=== PATIENT | female | born 1930 | race Caucasian/White ===

== ENCOUNTER → 2016-05-09 | Outpatient (CLI) | payer BC, MEDICARE ==
[2016-05-09 14:28] LABS: CH 30.3; CHCM 33.7; HCT 36.7 % (34.0-46.0); HDW 2.81; HGB 12.1 gm/dL (11.4-16.0); MCH 29.9 pg (25.0-35.0); MCHC 33.1 g/dL (31.0-37.0); MCV 90.3 fL (80.0-100.0); Mean Platelet Volume 7.8; RBC 4.07 m/uL (3.80-5.40); RDW 13.4 % (11.5-15.5)
[2016-05-09 14:42] LABS: ALT 25 U/L (9-52); AST 20 U/L (14-36); Alkaline Phosphatase 94 U/L (38-126); Amylase 85 U/L (30-110); Anion Gap 12 mmol/L; Blood Urea Nitrogen 14 mg/dL (7-17); Calcium 9.8 mg/dL (8.4-10.2); Carbon Dioxide 28 mmol/L (22-30); Chloride 105 mmol/L (98-107); Glucose 99 mg/dL (74-99); Non-African American GFR(MDRD) 59 (>60 ml/min/1.73 sqM); Potassium 4.1 mmol/L (3.5-5.1); Sodium 145 mmol/L (137-145); Total Bilirubin 1.1 mg/dL (0.2-1.3); Total Protein 7.4 g/dL (6.3-8.2)
--- NOTE | 2016-05-09 16:06 | CT ---
EXAMINATION TYPE: CT abdomen pelvis w con DATE OF EXAM: 05/09/2016 3:49 PM COMPARISON: NONE HISTORY: Bilateral lower quadrant pain x [address] DLP: 1121.00 mGycm Automated exposure control for dose reduction was used. CONTRAST: CT scan of the abdomen pelvis is performed with IV Contrast, patient injected with 80 mL of Visipaque 320. FINDINGS- LUNG BASES-cardiomegaly and subsegmental atelectasis at both lung bases. LIVER/GB-numerous hypodensities within the liver too small to characterize but likely related to hepa tic cysts. No gallstones.. PANCREAS- No gross abnormality is seen. SPLEEN- No gross abnormality is seen. ADRENALS- No gross abnormality is seen. KIDNEYS/BLADDER-there are numerous hypodense lesions the majority which appear to represent simple cy sts. Within the lower pole the left kidney is a 1.2 cm lesion which measures 34 Hounsfield units and does not meet the criteria of a simple cyst. Additionally there is a larger cyst within the upper zuly e the right kidney measuring 2.1 cm. This measures 16 Hounsfield units. BOWEL-bowel gas pattern nonspecific.. Normal appendix. LYMPH NODES- No greater than 1cm abdominal or pelvic lymph nodes areappreciated. OSSEOUS STRUCTURES-scoliosis and multilevel degenerative disc disease noted. Endplate deformity of L1 appears chronic may represent previous trauma and/or Schmorl's node. OTHER- ectasia and atherosclerotic changes of the aorta. Trace amount of fluid in the pelvis. IMPRESSION- 1. There are few prominent small bowel loops within the pelvis with a small amount of free fluid. Wit hin the distal ileum there are few loops of bowel which demonstrate very mild bowel wall thickening. This may be related mild area of localized ileus and enteritis. Contrast does extend in the colon wit h no diagnostic evidence of complete obstruction. Correlate clinically. 2. Left lower pole renal lesion is indeterminant does not measure compatible with a simple cyst. Diff erential diagnosis would include a complicated cyst. Solid neoplasm not excluded given its Hounsfield unit measurement and could be correlated with MRI as warranted.
== END ==
LOC: RADCTMAIN 13:12
PROVIDERS: ATTEND Family Medicine
DX: K63.9 Disease of intestine, unspecified (principal); N28.9 Disorder of kidney and ureter, unspecified; R10.31 Right lower quadrant pain; R10.32 Left lower quadrant pain
CPT/HCPCS: 80053; 82150; 83690; 85027; 74177; 36415; Q9967

== ENCOUNTER 2016-09-19 22:59 | Inpatient (IN) | payer MEDICARE ==
[2016-09-19] MEDS ORDERED: hydrALAZINE HCL 20 MG/ML 1 ML VIAL IVP STA (23:58)
[2016-09-20 00:36] LABS: Basophils % (A) 0 %; CH 29.6; CHCM 33.6; Eosinophils # (A) 0.1 k/uL (0-0.7); Eosinophils % (A) 2 %; HCT 32.5 % (34.0-46.0); HDW 2.76; HGB 11.2 gm/dL (11.4-16.0); Luc # (Auto) 0.12; Luc % (Auto) 2; Lymphocytes % (A) 13 %; MCH 30.7 pg (25.0-35.0); MCHC 34.7 g/dL (31.0-37.0); MCV 88.4 fL (80.0-100.0); Mean Platelet Volume 7.4; Monocytes # (A) 0.4 k/uL (0-1.0); Monocytes % (A) 6 %; Neutrophils # (A) 5.9 k/uL (1.3-7.7); Neutrophils % (A) 78 %; RBC 3.67 m/uL (3.80-5.40); RDW 13.9 % (11.5-15.5); WBC 7.5 k/uL (3.8-10.6); WBC (Perox) 7.18
[2016-09-20 00:47] LABS: Appearance,Urine Clear (Clear); Bilirubin,Urine Negative (Negative); Glucose,Urine (UA) Negative (Negative); Ketones,Urine Negative (Negative); Leukocyte Esterase,Urine Trace (Negative); Mucus,Urine Rare /hpf; Nitrite,Urine Negative (Negative); PH, Urine 6.5 (5.0-8.0); Particle Count 560; Protein,Urine Negative (Negative); RBC,Urine <1 /hpf (0-5); Specific Gravity,Urine 1.004 (1.001-1.035); Squamous Epithelial Cell,Urine <1 /hpf (0-4); UA Billing (MACRO vs. MICRO) MICRO; Urobilinogen,Urine <2.0 mg/dL (<2.0); WBC,Urine 1 /hpf (0-5)
[2016-09-20 00:51] LABS: ALT 26 U/L (9-52); AST 16 U/L (14-36); Alkaline Phosphatase 109 U/L (38-126); Anion Gap 12 mmol/L; Blood Urea Nitrogen 16 mg/dL (7-17); Carbon Dioxide 27 mmol/L (22-30); Chloride 107 mmol/L (98-107); Glucose 115 mg/dL (74-99); Non-African American GFR(MDRD) 59 (>60 ml/min/1.73 sqM); Sodium 146 mmol/L (137-145); Total Bilirubin 0.3 mg/dL (0.2-1.3); Total Protein 6.8 g/dL (6.3-8.2)
--- NOTE | 2016-09-20 01:09 | CT ---
PROCEDURE: CT HEAD Without Contrast HISTORY: 86-year-old female with headache. COMPARISON: None TECHNIQUE: CT imaging was obtained through the head. Coronal and sagittal reformations were performed. DOSE: Total Exam volume computed tomography dose index (CTDIvol) = 54.7 mGy and Dose Length Product (DLP) = 948.6 mGY-cm. This CT exam was performed using one or more of the following dose reduction techniques: automated exposure control, adjustment of the mA and/or kV according to patient size, and/or use of iterative reconstruction technique. FINDINGS: There is no evidence of acute intracranial hemorrhage, mass effect, or midline shift. The ventricles, sulci, and cisternal spaces are within normal limits for age. The andrew-white matter differentiation is preserved. Bilateral white matter hypodensities, nonspecific, but likely related to chronic microvascular ischemic changes. Bilateral basal ganglia calcifications. Intracranial arterial calcifications. The bony structures are intact. Mild ethmoid sinus mucosal thickening. Visualized mastoid air cells are clear. Visualized portions of the orbits are within normal limits. IMPRESSION: 1. No CT evidence of acute intracranial abnormality. 2. Other findings as detailed above.
[2016-09-20 01:12] VITALS: RESP 18
[2016-09-20] MEDS ORDERED: LABETALOL 5 MG/ML VIAL MDV IVP STA (01:18)
[2016-09-20] MEDS ORDERED: SODIUM CHLORIDE 0.9% 500 ML IV ONE (01:19)
[2016-09-20] MEDS ORDERED: ONDANSETRON 4 MG/2 ML VIAL IVP PRN (01:20)
[2016-09-20] MEDS ORDERED: ACETAMINOPHEN TAB 325 MG TAB PO PRN (01:20)
[2016-09-20] MEDS ORDERED: NALOXONE 0.4 MG/ML 1 ML VIAL IV PRN (01:20)
[2016-09-20] MEDS ORDERED: LOSARTAN 50 MG TAB PO STA (01:26)
[2016-09-20] MEDS ORDERED: DEXTROSE 5%-0.45% NACL 1,000 ML IV SCH (01:30)
--- NOTE | 2016-09-20 01:32 | ED ---
General Adult HPI - General Chief complaint: Dizziness Stated complaint: Dizzy Time Seen by Provider: 09/19/16 23:50 Source: patient, family, RN notes reviewed Mode of arrival: ambulatory Limitations: no limitations - History of Present Illness Initial comments: 86-year-old female presents with chief complaint of lightheadedness. Patient states she also had a mild headache which is currently resolved. She also had nausea without vomiting and one episode of diarrhea. She denies fever. Patient denies chest pain or shortness of breath. She denies symptoms consistent with vertigo. Patient has past medical history of hypertension and was recently changed to losartan 50 mg. - Related Data Home Medications Medication Instructions Recorded Confirmed Atorvastatin [Lipitor] 20 mg PO DAILY 09/19/16 09/19/16 Cyanocobalamin [Vitamin B-12] 1,000 mcg PO DAILY 09/19/16 09/19/16 Losartan Potassium 50 mg PO DAILY 09/19/16 09/19/16 Allergies Allergy/AdvReac Type Severity Reaction Status Date / Time naproxen [From Naprosyn] Allergy Rash/Hives Verified 09/19/16 23:23 Review of Systems ROS Statement: Those systems with pertinent positive or pertinent negative responses have been documented in the HPI. ROS Other: All systems not noted in ROS Statement are negative. Neurological: Reports: headache Past Medical History Past Medical History: Cancer, Hyperlipidemia, Hypertension Additional Past Medical History / Comment(s): Basal cell skin cancer; Uterine Ca History of Any Multi-Drug Resistant Organisms: None Reported Past Surgical History: Hysterectomy Past Psychological History: No Psychological Hx Reported Smoking Status: Never smoker Past Alcohol Use History: None Reported Past Drug Use History: None Reported General Exam Limitations: no limitations General appearance: alert, in no apparent distress Head exam: Present: atraumatic, normocephalic Eye exam: Present: normal appearance, PERRL ENT exam: Present: normal exam, mucous membranes moist Neck exam: Present: normal inspection. Absent: meningismus Respiratory exam: Present: normal lung sounds bilaterally, respiratory distress Cardiovascular Exam: Present: regular rate, normal rhythm GI/Abdominal exam: Present: soft. Absent: distended, tenderness Rectal exam: Present: deferred Extremities exam: Present: normal capillary refill. Absent: pedal edema Back exam: Present: normal inspection Neurological exam: Present: alert, oriented X3, CN II-XII intact. Absent: motor sensory deficit Psychiatric exam: Present: normal affect, normal mood Skin exam: Present: warm, dry Course Vital Signs 09/19/16 09/20/16 09/20/16 23:07 00:13 00:41 Temperature 97.5 F L 97.5 F L Pulse Rate 82 82 Respiratory 18 20 Rate Blood Pressure 230/100 229/104 198/85 O2 Sat by Pulse 97 96 Oximetry 09/20/16 09/20/16 01:11 01:25 Temperature 97.8 F Pulse Rate 78 89 Respiratory 18 Rate Blood Pressure 214/94 227/100 O2 Sat by Pulse 99 Oximetry - Reevaluation(s) Reevaluation #1: 09/20/16 01:29 On reevaluation patient's headache is resolved, she still complains of some lightheadedness. Medical Decision Making - Medical Decision Making 86-year-old female presenting with lightheadedness and headache. Patient's headache is resolved but she has persistent lightheadedness. She is found to have a blood pressure of 220 systolic. She was recently changed to losartan 50 mg for hypertension. Patient has no other complaints. Laboratory studies are unremarkable CT of the head shows no acute process, no ventricular hemorrhage or mass effect. Patient is given IV hydralazine with minimal improvement in her blood pressure, she is given IV labetalol and an additional dose of her losartan. She is switched to 100 mg of losartan daily. Patient will be admitted for blood pressure control and further evaluation and treatment. Diagnosis: Hypertensive urgency - Lab Data Result diagrams: 09/20/16 00:10 09/20/16 00:10 Lab Results 09/19/16 09/20/16 09/20/16 Range/Units 22:55 00:10 00:10 WBC 7.5 (3.8-10.6) k/uL RBC 3.67 L (3.80-5.40) m/uL Hgb 11.2 L (11.4-16.0) gm/dL Hct 32.5 L (34.0-46.0) % MCV 88.4 (80.0-100.0) fL MCH 30.7 (25.0-35.0) pg MCHC 34.7 (31.0-37.0) g/dL RDW 13.9 (11.5-15.5) % Plt Count 185 (150-450) k/uL Neutrophils % 78 % Lymphocytes % 13 % Monocytes % 6 % Eosinophils % 2 % Basophils % 0 % Neutrophils # 5.9 (1.3-7.7) k/uL Lymphocytes # 1.0 (1.0-4.8) k/uL Monocytes # 0.4 (0-1.0) k/uL Eosinophils # 0.1 (0-0.7) k/uL Basophils # 0.0 (0-0.2) k/uL Sodium 146 H (137-145) mmol/L Potassium 4.0 (3.5-5.1) mmol/L Chloride 107 (98-107) mmol/L Carbon Dioxide 27 (22-30) mmol/L Anion Gap 12 mmol/L BUN 16 (7-17) mg/dL Creatinine 0.90 (0.52-1.04) mg/dL Est GFR (MDRD) Af Amer >60 (>60 ml/min/1.73 sqM) Est GFR (MDRD) Non-Af 59 (>60 ml/min/1.73 sqM) Glucose 115 H (74-99) mg/dL Calcium 10.0 (8.4-10.2) mg/dL Total Bilirubin 0.3 (0.2-1.3) mg/dL AST 16 (14-36) U/L ALT 26 (9-52) U/L Alkaline Phosphatase 109 (38-126) U/L Troponin I (0.000-0.034) ng/mL Total Protein 6.8 (6.3-8.2) g/dL Albumin 4.0 (3.5-5.0) g/dL Urine Color Colorless Urine Appearance Clear (Clear) Urine pH 6.5 (5.0-8.0) Ur Specific Ong 1.004 (1.001-1.035) Urine Protein Negative (Negative) Urine Glucose (UA) Negative (Negative) Urine Ketones Negative (Negative) Urine Blood Negative (Negative) Urine Nitrite Negative (Negative) Urine Bilirubin Negative (Negative) Urine Urobilinogen <2.0 (<2.0) mg/dL Ur Leukocyte Esterase Trace H (Negative) Urine RBC <1 (0-5) /hpf Urine WBC 1 (0-5) /hpf Ur Squamous Epith Cells <1 (0-4) /hpf Urine Mucus Rare H (None) /hpf 09/20/16 Range/Units 00:10 WBC (3.8-10.6) k/uL RBC (3.80-5.40) m/uL Hgb (11.4-16.0) gm/dL Hct (34.0-46.0) % MCV (80.0-100.0) fL MCH (25.0-35.0) pg MCHC (31.0-37.0) g/dL RDW (11.5-15.5) % Plt Count (150-450) k/uL Neutrophils % % Lymphocytes % % Monocytes % % Eosinophils % % Basophils % % Neutrophils # (1.3-7.7) k/uL Lymphocytes # (1.0-4.8) k/uL Monocytes # (0-1.0) k/uL Eosinophils # (0-0.7) k/uL Basophils # (0-0.2) k/uL Sodium (137-145) mmol/L Potassium (3.5-5.1) mmol/L Chloride (98-107) mmol/L Carbon Dioxide (22-30) mmol/L Anion Gap mmol/L BUN (7-17) mg/dL Creatinine (0.52-1.04) mg/dL Est GFR (MDRD) Af Amer (>60 ml/min/1.73 sqM) Est GFR (MDRD) Non-Af (>60 ml/min/1.73 sqM) Glucose (74-99) mg/dL Calcium (8.4-10.2) mg/dL Total Bilirubin (0.2-1.3) mg/dL AST (14-36) U/L ALT (9-52) U/L Alkaline Phosphatase (38-126) U/L Troponin I <0.012 (0.000-0.034) ng/mL Total Protein (6.3-8.2) g/dL Albumin (3.5-5.0) g/dL Urine Color Urine Appearance (Clear) Urine pH (5.0-8.0) Ur Specific Ong (1.001-1.035) Urine Protein (Negative) Urine Glucose (UA) (Negative) Urine Ketones (Negative) Urine Blood (Negative) Urine Nitrite (Negative) Urine Bilirubin (Negative) Urine Urobilinogen (<2.0) mg/dL Ur Leukocyte Esterase (Negative) Urine RBC (0-5) /hpf Urine WBC (0-5) /hpf Ur Squamous Epith Cells (0-4) /hpf Urine Mucus (None) /hpf Disposition Clinical Impression: Hypertensive urgency Disposition: ADMITTED IP TO THIS [facility] Condition: Stable Referrals: Melyssa Vega MD [Primary Care Provider] - 1-2 days Decision to Admit Reason: Admit from EC Decision Date: 09/20/16 Decision Time: 01:31
--- NOTE | 2016-09-20 02:09 | XR ---
PROCEDURE: FILM CXR 2 VIEWS HISTORY: 86-year-old female with chest pain. COMPARISON: Chest radiograph 07/28/2013 TECHNIQUE: Frontal and lateral views of the chest were obtained. FINDINGS: Mildly enlarged cardiac silhouette. Calcifications of the aortic arch. No evidence of focal consolidation or pneumothorax. Mild blunting of the left costophrenic angle may be due to trace effusion versus pleural thickening. Bones are osteopenic. IMPRESSION: Mildly enlarged cardiac silhouette. Mild blunting of the left costophrenic angle may be due to trace effusion versus pleural thickening.
[2016-09-20] MEDS ORDERED: LOSARTAN 50 MG TAB PO SCH (09:00)
[2016-09-20] MEDS ORDERED: ATORVASTATIN 20 MG TAB PO SCH (09:00)
[2016-09-20 11:13] VITALS: BMI 21.9
[2016-09-20 13:35] VITALS: BP 148/80; PULSE 74; TEMP 98
--- NOTE | 2016-09-20 14:33 | P.DS ---
Providers Date of admission: 09/20/16 01:20 Attending physician: Xu Padilla MD Primary care physician: Melyssa Vega [facility] Course: please refer to HPI Patient Condition at Discharge: Stable Plan - Discharge Summary New Discharge Prescriptions: Continue Cyanocobalamin [Vitamin B-12] 1,000 mcg PO DAILY Atorvastatin [Lipitor] 20 mg PO DAILY Changed Losartan Potassium 100 mg PO DAILY #0 Discharge Medication List Atorvastatin [Lipitor] 20 mg PO DAILY 09/19/16 [History] Cyanocobalamin [Vitamin B-12] 1,000 mcg PO DAILY 09/19/16 [History] Losartan Potassium 100 mg PO DAILY #0 09/20/16 [Rx] Follow up Appointment(s)/Referral(s): Melyssa Vega MD [Primary Care Provider] - 3 Days (office closed patient will make own follow up APT.) Patient Instructions/Handouts: Chronic Hypertension (DC) Discharge Disposition: HOME SELF-CARE
--- NOTE | 2016-09-20 14:33 | P.HPIM ---
History of Present Illness 86-year-old female presents with chief complaint of lightheadedness.patient's symptoms are not room spinning around denied any vertigo or any hearing problems. Patient states she also had a mild headache which is currently resolved. her symptoms are resolved and patient wanted to be discharged patient is found to have highly elevated blood pressure and patient was admitted for possible hypertensive emergency or accelerated hypertension. Patient blood pressure. Much came down and reasonably controlled with the doubling the dose of losartan. Patient was monitored in telemetry overnight without any significant abnormality. Patient to EKG showed sinus rhythm. She also had nausea without vomiting and one episode of diarrhea. She denies fever. Patient denies chest pain or shortness of breath. She denies symptoms consistent with vertigo. patient had a CT of the head which is essentially negative. Upon neuro exam the only significant abnormality that was appreciated positive Romberg sign with eyes closed the patient was evaluated by PT and OT and they recommendeda walker. She does have some instability of gait without any other cerebellar signs Past Medical History Past Medical History: Cancer, Hyperlipidemia, Hypertension Additional Past Medical History / Comment(s): Basal cell skin cancer; Uterine Ca History of Any Multi-Drug Resistant Organisms: None Reported Past Surgical History: Hysterectomy Past Anesthesia/Blood Transfusion Reactions: No Reported Reaction Past Psychological History: No Psychological Hx Reported Smoking Status: Never smoker Past Alcohol Use History: None Reported Past Drug Use History: None Reported - Past Family History Mother Family Medical History: Cancer Additional Family Medical History / Comment(s): CERVICAL CANCER Father Family Medical History: Cancer Medications and Allergies Home Medications Medication Instructions Recorded Confirmed Type Atorvastatin [Lipitor] 20 mg PO DAILY 09/19/16 09/19/16 History Cyanocobalamin [Vitamin B-12] 1,000 mcg PO DAILY 09/19/16 09/19/16 History Allergies Allergy/AdvReac Type Severity Reaction Status Date / Time naproxen [From Naprosyn] Allergy Rash/Hives Verified 09/19/16 23:23 Physical Exam Vitals: Vital Signs Temp Pulse Pulse Resp BP BP Pulse Ox 09/20/16 12:49 96 09/20/16 12:00 98.0 F 74 18 148/80 95 09/20/16 08:00 98.2 F 70 18 151/81 96 09/20/16 03:41 98.0 F 77 18 160/80 99 09/20/16 02:10 98.2 F 84 18 181/86 98 09/20/16 02:07 98.0 F 77 18 160/80 99 09/20/16 01:45 75 178/87 09/20/16 01:30 75 178/83 09/20/16 01:25 89 227/100 09/20/16 01:11 97.8 F 78 18 214/94 99 09/20/16 00:41 198/85 09/20/16 00:13 97.5 F L 82 20 229/104 96 09/19/16 23:07 97.5 F L 82 18 230/100 97 Intake and Output 09/19/16 09/20/16 09/20/16 22:59 06:59 14:59 Intake Total 80 120 Output Total 400 200 Balance -320 -80 Intake: IV 80 Dextrose 5%-0.45% NaCl 1, 80 000 ml @ 20 mls/hr IV . Q24H [facility] Rx#:[id number] Oral 120 Output: Urine 400 200 Other: Weight 57.9 kg 57.9 kg Patient Weight 09/21/16 06:59 Weight 57.9 kg PHYSICAL EXAMINATION: GENERAL: The patient is alert and oriented x3, not in any acute distress. Well developed, well nourished. HEENT: Pupils are round and equally reacting to light. EOMI. No scleral icterus. No conjunctival pallor. Normocephalic, atraumatic. No pharyngeal erythema. No thyromegaly. CARDIOVASCULAR: S1 and S2 present. No murmurs, rubs, or gallops. PULMONARY: Chest is clear to auscultation, no wheezing or crackles. ABDOMEN: Soft, nontender, nondistended, normoactive bowel sounds. No palpable organomegaly. MUSCULOSKELETAL: No joint swelling or deformity. EXTREMITIES: No cyanosis, clubbing, or pedal edema. NEUROLOGICAL: Gross neurological examination did not reveal any focal deficits. gait instability with positive Romberg sign with eyes closed SKIN: No rashes. Results CBC & Chem 7: 09/20/16 00:10 09/20/16 00:10 Labs: Abnormal Lab Results - Last 24 Hours (Table) 09/19/16 09/20/16 09/20/16 Range/Units 22:55 00:10 00:10 RBC 3.67 L (3.80-5.40) m/uL Hgb 11.2 L (11.4-16.0) gm/dL Hct 32.5 L (34.0-46.0) % Sodium 146 H (137-145) mmol/L Glucose 115 H (74-99) mg/dL Ur Leukocyte Esterase Trace H (Negative) Urine Mucus Rare H (None) /hpf Thrombosis Risk Factor Assmnt - Choose All That Apply Any of the Below Risk Factors Present?: No Each Risk Factor Represents 2 Points: Malignancy Each Risk Factor Represents 3 Points: Age 75 years or older Thrombosis Risk Factor Assessment Total Risk Factor Score: 5 Thrombosis Risk Factor Assessment Level: High Risk Assessment and Plan Plan: #1 headache and lightheadedness: Unsure of the exact etiology of lightheadedness but headache is probably related to accelerated hypertension are hypertensive urgency which improved at this point of time further management of that as mentioned in the HPI. #2 gait instability with positive Romberg sign eyes closed: PT and OT evaluate the patient and together recommended a walker walker. Patient does not have any TIA or stroke.probably can be evaluated for B12 deficiency as an outpatient. #3hyperlipidemia. 4 basal cell skin cancer and uterine cancer in remission.
== END 2016-09-20 15:56 | disposition home or self-care (01) | DRG 305 ==
LOC: EC 22:59 → 6SEL 09-20 01:20
PROVIDERS: ADMIT Internal Medicine; ATTEND Internal Medicine
DX: I16.0 Hypertensive urgency (principal); I10 Essential (primary) hypertension; E78.5 Hyperlipidemia, unspecified; R26.9 Unspecified abnormalities of gait and mobility; Z85.42 Personal history of malignant neoplasm of other parts of uterus; Z85.828 Personal history of other malignant neoplasm of skin; Z90.710 Acquired absence of both cervix and uterus; Z79.899 Other long term (current) drug therapy; Z88.8 Allergy status to other drugs, medicaments and biological substances
CPT/HCPCS: 36415; 70450; 71020; 80053; 81001; 84484; 85025; 93005; 94760; 96374; 96375; 99285

== ENCOUNTER → 2016-12-09 | Outpatient (CLI) | payer MEDICARE, OTHER ==
--- NOTE | 2016-12-09 10:08 | XR ---
EXAMINATION TYPE: XR hand complete LT DATE OF EXAM: 12/09/2016 COMPARISON: NONE HISTORY: Pain TECHNIQUE: Three views are submitted. FINDINGS: There is diffuse osteopenia. Narrowing of all joint space is seen conclusion of the radiocarpal joint and marked changes at the first carpal metacarpal joint. Central erosion involving the PIP joint fou rth digit and DIP joint second and third digit suspected. Chondrocalcinosis noted. There appears to be subluxation of the middle and distal phalanx of the fourth digit. IMPRESSION: 1. Subluxation or dislocation of the middle and distal phalanx fourth digit correlate clinically. 2. 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
--- NOTE | 2016-12-09 10:18 | XR ---
EXAMINATION TYPE: XR wrist complete LT DATE OF EXAM: 12/09/2016 COMPARISON: NONE HISTORY: Pain TECHNIQUE: Four views submitted. FINDINGS: There is narrowing of the visualized MCP joints and marked narrowing the first carpal metacarpal join t and radiocarpal joint. Cystic geode changes involving the lunate noted. Could not exclude a subtle deformity of the scaphoid. Chondrocalcinosis noted IMPRESSION: 1. 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 Cannot exclude a subtle fracture o f the scaphoid. Recommend CT scan.
== END | disposition home or self-care (01) ==
LOC: RADXRYALE 09:32
PROVIDERS: ATTEND Internal Medicine
DX: S69.92XA Unspecified injury of left wrist, hand and finger(s), initial encounter (principal); M13.832 Other specified arthritis, left wrist

== ENCOUNTER → 2017-06-09 | Outpatient (CLI) | payer MEDICARE, OTHER ==
--- NOTE | 2017-06-09 08:49 | XR ---
EXAMINATION TYPE: XR knee complete LT DATE OF EXAM: 06/09/2017 COMPARISON: NONE HISTORY: Pain TECHNIQUE: Four views are submitted. FINDINGS: There is a narrowing of the medial compartment joint space and patellofemoral joint. Vascular calcifi cations are seen. No erosive changes. Osseous structures are intact. No acute fracture seen. Diffus e osteopenia noted IMPRESSION: 1. Diffuse osteopenia and arthropathy.
== END | disposition home or self-care (01) ==
LOC: RADXRYALE 08:31
PROVIDERS: ATTEND Internal Medicine
DX: M85.88 Other specified disorders of bone density and structure, other site (principal); M12.9 Arthropathy, unspecified; M17.12 Unilateral primary osteoarthritis, left knee

== ENCOUNTER → 2017-09-11 | Outpatient (CLI) | payer MEDICARE, OTHER ==
--- NOTE | 2017-09-12 07:52 | US ---
EXAMINATION TYPE: US kidneys/renal and bladder DATE OF EXAM: 09/11/2017 COMPARISON: CT abdomen pelvis 05/09/2016 CLINICAL HISTORY: Gross Hematuria R31.0. Gross hematuria, hx of renal cyst EXAM MEASUREMENTS: Right Kidney: 11.0 x 5.2 x 5.9 cm Left Kidney: 9.8 x 4.0 x 4.6 cm Right Kidney: Moderate/severe hydronephrosis. Mid pole cystic appearing lesion = 1.9 x 2.2 x 2.5 cm. Scanned through ribs due to bowel gas Left Kidney: Multiple cystic appearing lesion seen. Largest inferior - 1.9 x 1.7 x 1.9 cm. Largest superior/lateral = 1.4 x 1.5 x 1.2 cm. Cortical thinning. Bladder: distended, wnl as visualized Bilateral Jets seen Cortical medullary differentiation is maintained. IMPRESSION: Moderate right hydronephrosis. Cortical cysts not clearly simple cystic. Follow-up suggested.
== END | disposition home or self-care (01) ==
LOC: RADUSMAIN 17:44
PROVIDERS: ATTEND Internal Medicine
DX: N13.30 Unspecified hydronephrosis (principal); N28.1 Cyst of kidney, acquired
CPT/HCPCS: 76770

== ENCOUNTER 2017-09-12 10:11 | Emergency (ER) | payer MEDICARE, OTHER ==
[2017-09-12 10:17] VITALS: RESP 18
--- NOTE | 2017-09-12 10:45 | ED ---
General Adult HPI - General Chief complaint: Urogenital Stated complaint: KIDNEY PROBLEMS, HEMATURIA Source: patient Mode of arrival: ambulatory Limitations: no limitations - History of Present Illness Initial comments: Dictation was produced using xoompark dictation software. please excuse any grammatical, word or spelling errors. Chief Complaint: 87-year-old female with past medical history of cancer, hyperlipidemia, hypertension presents after instructions for primary care physician come to the emergency department. History of Present Illness: Patient was seen at PCPs office proximally 10 days ago for chief complaint of right-sided flank pain. Urine was performed at that time showing findings to suggest urinary tract infection. She is given 10 day course of ciprofloxacin. Patient had a reevaluation by primary care physician and ultrasound retroperitoneum was obtained. Patient was called this morning and told to come to the emergency department for worsening bleeding in the urine and findings of right-sided hydronephrosis. Patient states she has pain in her right lower quadrant area. She has history of hysterectomy no other abdominal surgeries. Patient denies any constitutional symptoms. She does complain of suprapubic pain worse in the right than on the left. Denies any vaginal discharge. Patient states her urine has become or bloody over the past 3 days. No diarrhea. Complains of nausea however no vomiting. Past Medical History: Basal cell skin cancer, dyslipidemia, hypertension Past Surgical History: And hysterectomy Social History: [denies alcohol, tobacco or illicit drug use] Family History: reviewed and noncontributory The ROS documented in this emergency department record has been reviewed and confirmed by me. Those systems with pertinent positive or negative responses have been documented in the HPI. All other systems are other negative and/or noncontributory. - Related Data Home Medications Medication Instructions Recorded Confirmed Atorvastatin [Lipitor] 20 mg PO HS 09/19/16 09/12/17 Cyanocobalamin [Vitamin B-12] 500 mcg PO DAILY 09/19/16 09/12/17 Acetaminophen Tab [Tylenol Tab] 500 mg PO Q6H PRN 09/12/17 09/12/17 Losartan Potassium 50 mg PO BID 09/12/17 09/12/17 Vit C/E/Zn/Coppr/Lutein/Zeaxan 1 cap PO BID 09/12/17 09/12/17 [Preservision Areds 2 Softgel] amLODIPine [Norvasc] 5 mg PO DAILY 09/12/17 09/12/17 Allergies Allergy/AdvReac Type Severity Reaction Status Date / Time naproxen [From Naprosyn] Allergy Rash/Hives Verified 09/12/17 10:54 Review of Systems ROS Statement: Those systems with pertinent positive or pertinent negative responses have been documented in the HPI. ROS Other: All systems not noted in ROS Statement are negative. Past Medical History Past Medical History: Cancer, Hyperlipidemia, Hypertension Additional Past Medical History / Comment(s): Basal cell skin cancer; Uterine Ca History of Any Multi-Drug Resistant Organisms: None Reported Past Surgical History: Hysterectomy Past Anesthesia/Blood Transfusion Reactions: No Reported Reaction Past Psychological History: No Psychological Hx Reported Smoking Status: Never smoker Past Alcohol Use History: None Reported Past Drug Use History: None Reported - Past Family History Mother Family Medical History: Cancer Additional Family Medical History / Comment(s): CERVICAL CANCER Father Family Medical History: Cancer General Exam - General Exam Comments Initial Comments: Vitals: Vital signs upon arrival shows blood pressure 178/76, worse vital signs within normal limits PHYSICAL EXAM: General Impression: Alert and oriented x3, not in acute distress HEENT: Normocephalic atraumatic, extra-ocular movements intact, pupils equal and reactive to light bilaterally, mucous membranes moist. Cardiovascular: Heart regular rate and rhythm, S1&S2 audible, no murmurs, rubs or gallops Chest: Lungs clear to auscultation bilaterally, no rhonchi, no wheeze, no rales Abdomen: Bowel sounds present, abdomen soft, tenderness to the bilateral lower quadrants worse in the right Musculoskeletal: Pulses present and equal in all extremities, no peripheral edema Motor: Power 5/5 bilaterally, no focal deficits noted Neurological: CN II-XII grossly intact, no focal motor or sensory deficits noted Skin: Intact with no visualized rashes Psych: Normal affect and mood Limitations: no limitations Course Vital Signs 09/12/17 10:14 Temperature 98.3 F Pulse Rate 84 Respiratory 18 Rate Blood Pressure 178/76 O2 Sat by Pulse 98 Oximetry Medical Decision Making - Medical Decision Making ED course: 79-year-old female presents via instruction from primary care physician to come to the emergency department for severe right-sided hydronephrosis seen on outpatient retroperitoneal ultrasound. Patient appears well. She does complain of some right lower quadrant abdominal tenderness.Physical examination is benign. Patient is well-appearing. Laboratory evaluation obtained. CBC shows no acute processes. Hemoglobin stable at 11.3 compared to last. Cumbersome metabolic panel is unremarkable. Mild hypokalemia of 3.4. Urinalysis shows 182 red blood cells, 107 white cells. Computed tomography scan of the abdomen and pelvis was obtained showing a 7 mm nephrolithiasis at the mid right ureter. No other significant findings. Discussed patient case with primary care physician's office who is concerned about the hematuria. They sent her here for hemoglobin check as well. Discussed patient case with urologist Dr. Perez who came to the emergency department to evaluate patient. Urology recommends discharging patient with outpatient follow-up on Friday. He requested a KUB for baseline. Patient is understandable and agreeable to plan. Patient just completed a ten-day course of ciprofloxacin. No indication for antibiotics at this time. Patient is not requesting any pain medications. - Lab Data Result diagrams: 09/12/17 11:00 09/12/17 11:00 Lab Results 09/12/17 09/12/17 09/12/17 Range/Units 11:00 11:00 11:22 WBC 8.6 (3.8-10.6) k/uL RBC 3.92 (3.80-5.40) m/uL Hgb 11.3 L (11.4-16.0) gm/dL Hct 34.7 (34.0-46.0) % MCV 88.3 (80.0-100.0) fL MCH 28.7 (25.0-35.0) pg MCHC 32.5 (31.0-37.0) g/dL RDW 13.2 (11.5-15.5) % Plt Count 202 (150-450) k/uL Neutrophils % 82 % Lymphocytes % 9 % Monocytes % 6 % Eosinophils % 2 % Basophils % 0 % Neutrophils # 7.0 (1.3-7.7) k/uL Lymphocytes # 0.8 L (1.0-4.8) k/uL Monocytes # 0.5 (0-1.0) k/uL Eosinophils # 0.1 (0-0.7) k/uL Basophils # 0.0 (0-0.2) k/uL Sodium 145 (137-145) mmol/L Potassium 3.4 L (3.5-5.1) mmol/L Chloride 107 (98-107) mmol/L Carbon Dioxide 27 (22-30) mmol/L Anion Gap 11 mmol/L BUN 16 (7-17) mg/dL Creatinine 1.01 (0.52-1.04) mg/dL Est GFR (CKD-EPI)AfAm 58 (>60 ml/min/1.73 sqM) Est GFR (CKD-EPI)NonAf 50 (>60 ml/min/1.73 sqM) Glucose 91 (74-99) mg/dL Calcium 9.3 (8.4-10.2) mg/dL Magnesium 1.5 L (1.6-2.3) mg/dL Total Bilirubin 0.5 (0.2-1.3) mg/dL AST 25 (14-36) U/L ALT 27 (9-52) U/L Alkaline Phosphatase 99 (38-126) U/L Total Protein 6.5 (6.3-8.2) g/dL Albumin 3.9 (3.5-5.0) g/dL Lipase 187 (23-300) U/L Urine Color Red Urine Appearance Turbid H (Clear) Urine pH 5.5 (5.0-8.0) Ur Specific [place] 1.014 (1.001-1.035) Urine Protein 1+ H (Negative) Urine Glucose (UA) Negative (Negative) Urine Ketones Negative (Negative) Urine Blood Large H (Negative) Urine Nitrite Negative (Negative) Urine Bilirubin Negative (Negative) Urine Urobilinogen <2.0 (<2.0) mg/dL Ur Leukocyte Esterase Large H (Negative) Urine RBC >182 H (0-5) /hpf Urine WBC 107 H (0-5) /hpf Ur Squamous Epith Cells 3 (0-4) /hpf Amorphous Sediment Rare H (None) /hpf Urine Mucus Moderate H (None) /hpf Disposition Clinical Impression: Nephrolithiasis Disposition: HOME SELF-CARE Condition: Fair Instructions: Kidney Stones (ED) Additional Instructions: follow up with urologist as instructed Is patient prescribed a controlled substance at d/c from ED?: No Referrals: Melyssa Vega MD [Primary Care Provider] - 1-2 days Lorenzo Perez MD [STAFF PHYSICIAN] - 1-2 days Time of Disposition: 14:00
[2017-09-12 11:23] LABS: Albumin 3.9 g/dL (3.5-5.0); Calcium 9.3 mg/dL (8.4-10.2); Magnesium 1.5 mg/dL (1.6-2.3); Potassium 3.4 mmol/L (3.5-5.1); Total Bilirubin 0.5 mg/dL (0.2-1.3); Total Protein 6.5 g/dL (6.3-8.2)
[2017-09-12 11:56] LABS: Amorphous Sediment,Urine Rare /hpf; Appearance,Urine Turbid (Clear); Bilirubin,Urine Negative (Negative); Blood,Urine Large (Negative); Color,Urine Red; Glucose,Urine (UA) Negative (Negative); Ketones,Urine Negative (Negative); Leukocyte Esterase,Urine Large (Negative); Mucus,Urine Moderate /hpf; Nitrite,Urine Negative (Negative); PH, Urine 5.5 (5.0-8.0); Protein,Urine 1+ (Negative); RBC,Urine >182 /hpf (0-5); Specific Gravity,Urine 1.014 (1.001-1.035); Squamous Epithelial Cell,Urine 3 /hpf (0-4); Urobilinogen,Urine <2.0 mg/dL (<2.0); WBC,Urine 107 /hpf (0-5)
--- NOTE | 2017-09-12 12:23 | CT ---
EXAMINATION TYPE: CT abdomen pelvis w con DATE OF EXAM: 09/12/2017 COMPARISON: 05/09/2016 HISTORY: 87-year-old female complains of generalized abdominal pain, nausea, diarrhea, and gross juancarlos turia. TECHNIQUE: Contiguous axial scanning of the abdomen and pelvis following administration of 100 ml Omn ipaque 300 IV contrast. Delayed images through the kidneys and coronal/sagittal reconstructions perf ormed. CT DLP: 966 mGycm Automated exposure control for dose reduction was used. FINDINGS: Heart mildly enlarged with trace anterior pericardial fluid at the base. Coronary vessel calcificatio ns are present. Borderline ectatic lower descending thoracic aorta 2.5 cm with moderate prostatic calcifications. Johnny e mild reticular densities and mild traction bronchiectasis at the lung bases suggesting chronic post inflammatory sequela. Numerous cysts within the liver redemonstrated measuring up to 1.4 cm. Portal venous system is patent . No biliary ductal dilatation. Gallbladder, adrenal glands, and pancreas appear within normal limits. Moderate atherosclerotic calcifications throughout the abdominal aorta and iliac arteries with a tort uosity but no tuan aneurysm. Some calcified granulomas in the spleen. There is moderate to severe right-sided hydronephrosis with a 7 mm calculus at the mid right ureter a long with mild proximal hydroureter ureter and mild surrounding fat stranding of the ureter. A number of bilateral renal cysts are demonstrated, couple new such as in the medial mid to lower zuly e left kidney measuring 2.0 cm. The previously questioned left lower pole renal cyst is unchanged at 1.8 cm and shows no appreciable enhancement. No dilated small bowel, free fluid, or free air. Right hemicolonic diverticulosis. No pericolonic inf lammatory change. Some liquid stool seen within the cecum. Bladder is distended. Uterus surgically absent. Multiple pelvic phleboliths. Small amount of pelvic f ree fluid is redemonstrated. No lymphadenopathy seen in the pelvis. Bones: Diffuse osteopenia with degenerative changes of the hips and throughout the lumbar spine. Supe rior endplate Schmorl's node of L1 vertebral body and facet arthropathy with grade 1 anterolisthesis at L5-S1. IMPRESSION: 1. A 7 MM CALCULUS IN THE MID RIGHT URETER WITH MODERATE TO SEVERE OBSTRUCTIVE UROPATHY. 2. NUMEROUS BILATERAL RENAL CYSTS, COUPLE BEING NEW FROM 05/09/2016. NO SUSPICIOUS RENAL MASS IS SEEN. 3. RIGHT-SIDED COLONIC DIVERTICULOSIS. 4. SOME LIQUID STOOL IN THE CECUM COULD REFLECT AN ENTERITIS.
[2017-09-12 12:51] LABS: Basophils % (A) 0 %; Eosinophils # (A) 0.1 k/uL (0-0.7); Eosinophils % (A) 2 %; HCT 34.7 % (34.0-46.0); HGB 11.3 gm/dL (11.4-16.0); Lymphocytes # (A) 0.8 k/uL (1.0-4.8); Lymphocytes % (A) 9 %; MCH 28.7 pg (25.0-35.0); MCHC 32.5 g/dL (31.0-37.0); MCV 88.3 fL (80.0-100.0); Mean Platelet Volume 6.9; Monocytes # (A) 0.5 k/uL (0-1.0); Monocytes % (A) 6 %; Neutrophils % (A) 82 %; Platelet Count 202 k/uL (150-450); RBC 3.92 m/uL (3.80-5.40); RDW 13.2 % (11.5-15.5); WBC 8.6 k/uL (3.8-10.6)
[2017-09-12] MEDS ORDERED: MAGNESIUM OXIDE 400 MG TAB PO STA (12:59)
--- NOTE | 2017-09-12 13:53 | XR ---
EXAMINATION TYPE: XR KUB DATE OF EXAM: 09/12/2017 COMPARISON: 09/12/2017 HISTORY: Pain TECHNIQUE: One view abdominal series FINDINGS: There is retained contrast within the right kidney which appears to represent hydronephrosis. Vascula r calcification seen. Scoliosis of the spine with diffuse osteopenia. Subsegmental changes at both koffi ng bases. Contrast in the bladder noted and there are calcifications in the pelvis likely vascular. A rthropathy of the hips noted. Calcification medial to the right SI joint may represent CT ureteral ca lcification. IMPRESSION: 1. Nonspecific abdomen with findings suggestive of right-sided hydronephrosis with retained contrast within the collecting system. 7 mm calculus in the mid right ureter likely overlies the right portion of the sacrum.
--- NOTE | 2017-09-12 13:53 | P.GSCN ---
History of Present Illness Consult date: 09/12/17 Reason for Consult: Gross hematuria and right hydronephrosis History of present illness: The patient is an 87-year-old female who originally developed dark colored urine 2- 3 weeks ago. She denied any dysuria, fever or flank pain at that time. She was presumed to have a urinary tract infection and was treated with Cipro for 10 days but it's unclear whether a urine culture was obtained. She apparently had persistent hematuria and a renal ultrasound was performed on 09/11 which showed moderate right hydronephrosis. The patient was advised to come to the emergency room for further evaluation. Computed tomography scan of the abdomen and pelvis identified a 5 x 7 mm calculus in the right ureter at the level of the iliac vessels with moderate right hydroureteronephrosis. The patient denies any flank pain. She has been treated for urinary tract infections periodically in the past. She says she usually voids every 3-4 hours during the day and 2 or 3 times at night and this pattern of voiding has not changed recently. There is no family history of urolithiasis. Review of Systems - Constitutional Reports as per HPI, Denies chills, Denies fever - Cardiovascular Denies chest pain, Denies palpitations, Denies shortness of breath - Respiratory Denies cough - Gastrointestinal Reports as per HPI, Denies change in bowel habits - Genitourinary Genitourinary: Reports as per HPI Past Medical History Past Medical History: Cancer (Uterine cancer treated with hysterectomy and adjuvant external beam radiation therapy 1969), Hyperlipidemia, Hypertension, Thyroid Disorder (Thyroid biopsy ?) Additional Past Medical History / Comment(s): Basal cell skin cancer; Uterine Ca History of Any Multi-Drug Resistant Organisms: None Reported Past Surgical History: Hysterectomy Past Anesthesia/Blood Transfusion Reactions: No Reported Reaction Past Psychological History: No Psychological Hx Reported Smoking Status: Never smoker Past Alcohol Use History: None Reported Past Drug Use History: None Reported - Past Family History Mother Family Medical History: Cancer Additional Family Medical History / Comment(s): CERVICAL CANCER Father Family Medical History: Cancer Medications and Allergies Home Medications Medication Instructions Recorded Confirmed Type Atorvastatin [Lipitor] 20 mg PO HS 09/19/16 09/12/17 History Cyanocobalamin [Vitamin B-12] 500 mcg PO DAILY 09/19/16 09/12/17 History Acetaminophen Tab [Tylenol Tab] 500 mg PO Q6H PRN 09/12/17 09/12/17 History Losartan Potassium 50 mg PO BID 09/12/17 09/12/17 History Vit C/E/Zn/Coppr/Lutein/Zeaxan 1 cap PO BID 09/12/17 09/12/17 History [Preservision Areds 2 Softgel] amLODIPine [Norvasc] 5 mg PO DAILY 09/12/17 09/12/17 History Allergies Allergy/AdvReac Type Severity Reaction Status Date / Time naproxen [From Naprosyn] Allergy Rash/Hives Verified 09/12/17 10:54 Surgical - Exam Vital Signs Temp Pulse Resp BP Pulse Ox 98.3 F 84 18 178/76 98 09/12/17 10:14 09/12/17 10:14 09/12/17 10:14 09/12/17 10:14 09/12/17 10:14 - General well developed, well nourished, no distress - ENT no hearing loss - Neck no masses, no bruits, no lymphadectomy - Respiratory normal expansion, normal respiratory effort, clear to percussion, clear to auscultation - Cardiovascular Rhythm: regular Abnormal Heart Sounds: no systolic murmur, no diastolic murmur - Abdomen Abdomen: soft, tender (Minimal tenderness in right flank to palpation), no organomegaly - Psychiatric oriented to time, oriented to person, oriented to place, speech is normal Results - Labs 09/12/17 11:00 09/12/17 11:00 Abnormal Lab Results - Last 24 Hours (Table) 09/12/17 09/12/17 09/12/17 Range/Units 11:00 11:00 11:22 Hgb 11.3 L (11.4-16.0) gm/dL Lymphocytes # 0.8 L (1.0-4.8) k/uL Potassium 3.4 L (3.5-5.1) mmol/L Magnesium 1.5 L (1.6-2.3) mg/dL Urine Appearance Turbid H (Clear) Urine Protein 1+ H (Negative) Urine Blood Large H (Negative) Ur Leukocyte Esterase Large H (Negative) Urine RBC >182 H (0-5) /hpf Urine WBC 107 H (0-5) /hpf Amorphous Sediment Rare H (None) /hpf Urine Mucus Moderate H (None) /hpf Diabetes panel 09/12/17 Range/Units 11:00 Sodium 145 (137-145) mmol/L Potassium 3.4 L (3.5-5.1) mmol/L Chloride 107 (98-107) mmol/L Carbon Dioxide 27 (22-30) mmol/L BUN 16 (7-17) mg/dL Creatinine 1.01 (0.52-1.04) mg/dL Glucose 91 (74-99) mg/dL Calcium 9.3 (8.4-10.2) mg/dL AST 25 (14-36) U/L ALT 27 (9-52) U/L Alkaline Phosphatase 99 (38-126) U/L Total Protein 6.5 (6.3-8.2) g/dL Albumin 3.9 (3.5-5.0) g/dL Calcium panel 09/12/17 Range/Units 11:00 Calcium 9.3 (8.4-10.2) mg/dL Albumin 3.9 (3.5-5.0) g/dL Pituitary panel 09/12/17 Range/Units 11:00 Sodium 145 (137-145) mmol/L Potassium 3.4 L (3.5-5.1) mmol/L Chloride 107 (98-107) mmol/L Carbon Dioxide 27 (22-30) mmol/L BUN 16 (7-17) mg/dL Creatinine 1.01 (0.52-1.04) mg/dL Glucose 91 (74-99) mg/dL Calcium 9.3 (8.4-10.2) mg/dL Adrenal panel 09/12/17 Range/Units 11:00 Sodium 145 (137-145) mmol/L Potassium 3.4 L (3.5-5.1) mmol/L Chloride 107 (98-107) mmol/L Carbon Dioxide 27 (22-30) mmol/L BUN 16 (7-17) mg/dL Creatinine 1.01 (0.52-1.04) mg/dL Glucose 91 (74-99) mg/dL Calcium 9.3 (8.4-10.2) mg/dL Total Bilirubin 0.5 (0.2-1.3) mg/dL AST 25 (14-36) U/L ALT 27 (9-52) U/L Alkaline Phosphatase 99 (38-126) U/L Total Protein 6.5 (6.3-8.2) g/dL Albumin 3.9 (3.5-5.0) g/dL - Imaging CT scan - pelvis: image reviewed (5 x 7 mm calculus in right ureter at level of pelvic brim with moderate right hydroureteronephrosis - no other renal calculi.) Assessment and Plan Assessment: The patient has a history of gross hematuria which is most likely directly related to the calculus in the right ureter. The calculus has passed two th[address] from the kidney to the bladder and the patient is currently comfortable and her renal function is normal for her age. She has no evidence of urinary tract infection at this time. In view of this I discussed observation in hopes that the calculus will pass spontaneously. A KUB will be obtained to see if the calculus is visible on a plain radiograph. The patient will strain her urine and if she has not passed the stone in 10 days a repeat KUB may be obtained at that time. (1) Hydronephrosis concurrent with and due to calculi of kidney and ureter Current Visit: Yes Status: Acute Code(s): N13.2 - HYDRONEPHROSIS WITH RENAL AND URETERAL CALCULOUS OBSTRUCTION SNOMED Code(s): 736291677
[2017-09-12 14:27] VITALS: BP 144/78; PULSE 70; TEMP 98.5
== END 2017-09-12 14:27 | disposition home or self-care (01) ==
LOC: EC 10:11
DX: N13.2 Hydronephrosis with renal and ureteral calculous obstruction (principal); E87.6 Hypokalemia; E78.5 Hyperlipidemia, unspecified; I10 Essential (primary) hypertension; Z85.42 Personal history of malignant neoplasm of other parts of uterus; Z85.828 Personal history of other malignant neoplasm of skin; Z90.710 Acquired absence of both cervix and uterus; Z79.899 Other long term (current) drug therapy; Z88.6 Allergy status to analgesic agent
CPT/HCPCS: 36415; 93005; 80053; 83690; 83735; 85025; 81001; 87086; 74018; 74177; 99285; Q9967

== ENCOUNTER → 2017-09-24 | Outpatient (CLI) | payer MEDICARE, OTHER ==
--- NOTE | 2017-09-24 09:51 | XR ---
Abdomen HISTORY: Kidney stone Frontal view of the abdomen submitted on 2 images and correlated to prior abdomen and CT abdomen pelv is 09/22/2017 Suspect there is a persistent distal right ureteral calculus in the right hemipelvis measuring approx imately 8 mm on plain film and likely has migrated slightly in the interval. There may be underlying right-sided hydronephrosis as on prior exam. Multiple calcifications are again noted within the pelvi s. There is a levoscoliosis. Dense vascular calcifications. Degenerative disc change in the visualize d lumbar spine. No evident bowel obstruction or pneumoperitoneum. IMPRESSION: Suspect right-sided obstructive hydronephrosis due to distal right ureteral calcification .
== END | disposition home or self-care (01) ==
LOC: RADXRMAIN 09:25
PROVIDERS: ATTEND Internal Medicine
DX: N28.89 Other specified disorders of kidney and ureter (principal)
CPT/HCPCS: 74018

== ENCOUNTER → 2017-10-23 | Outpatient (CLI) | payer MEDICARE, OTHER ==
--- NOTE | 2017-10-23 10:44 | XR ---
EXAMINATION TYPE: XR abdomen 1V DATE OF EXAM: 10/23/2017 COMPARISON: 09/24/2017 HISTORY: Ureteral stone follow-up on the right TECHNIQUE: One view abdominal series FINDINGS: The osseous structures are intact. The bowel gas pattern is nonspecific. Diffuse osteopenia and dege nerative change of the spine. Extensive vascular calcifications. Arthropathy of the hips. No suspicious calcifications overlying the kidneys. There are numerous calcifications in the pelvis w hich appear to be vascular. Previously noted larger calcification at the level of distal right ureter is not seen on today's exam. IMPRESSION: 1. Previous large calcification or the level the right are seen in today's exam which may represent p assage of a right ureteral stone. Correlate clinically.
== END | disposition home or self-care (01) ==
LOC: RADXRYALE 09:02
PROVIDERS: ATTEND Urology
DX: N20.1 Calculus of ureter (principal)
CPT/HCPCS: 74018

== ENCOUNTER → 2017-11-06 | Outpatient (CLI) | payer MEDICARE, OTHER ==
--- NOTE | 2017-11-06 23:31 | US ---
EXAMINATION TYPE: US kidneys/renal and bladder DATE OF EXAM: 11/06/2017 COMPARISON: Correlation CT 09/12/2017 CLINICAL HISTORY: 87-year-old female R93.4 history of hydronephrosis. Hx of stones and hydronephrosis . TECHNIQUE: Multiple sonographic images of the kidneys and bladder are obtained. FINDINGS: EXAM MEASUREMENTS: Right Kidney: 10.0 x 4.7 x 4.2 cm Left Kidney: 9.8 x 4.9 x 4.3 cm Incidental finding cyst in left lobe of liver measuring 1.6 x 1.4 x 1.7 cm. A number of additional cy sts were present throughout the liver on the patient's recent CT. Right Kidney: Moderate hydronephrosis seen. Upper pole simple cyst seen measuring 2.5 x 2.7 x 2.3 cm. Mid pole cyst seen measuring 2.4 x 2.9 x 2.4 cm. Left Kidney: No hydronephrosis. Multiple cysts seen largest lower pole measuring 1.8 x 1.6 x 1.4cm. L imited due to rib shadowing. Bladder: No gross abnormality. Bilateral Jets seen: Yes IMPRESSION: 1. Moderate right-sided hydronephrosis. The presence of the right ureteral jet may indicate a partial obstruction. 2. Bilateral simple renal cysts.
== END | disposition home or self-care (01) ==
LOC: RADUSWWP 17:36
PROVIDERS: ATTEND Urology
DX: N28.1 Cyst of kidney, acquired (principal); N13.30 Unspecified hydronephrosis; Z88.8 Allergy status to other drugs, medicaments and biological substances
CPT/HCPCS: 76770

== ENCOUNTER → 2017-11-20 | Outpatient (CLI) | payer MEDICARE, OTHER ==
--- NOTE | 2017-11-21 09:10 | XR ---
EXAMINATION TYPE: XR shoulder complete RT DATE OF EXAM: 11/20/2017 COMPARISON: NONE HISTORY: Pain TECHNIQUE: Three views are submitted. FINDINGS: The osseous structures are intact. There is no acute fracture or dislocation. Diffuse osteopenia. Na rrowing arthropathy of the AC joint. IMPRESSION: 1. AC joint arthropathy correlate clinically.
== END ==
LOC: RADXRYALE 16:03
PROVIDERS: ATTEND Internal Medicine
DX: M19.011 Primary osteoarthritis, right shoulder (principal)

== ENCOUNTER → 2018-01-28 | Outpatient (CLI) | payer MEDICARE, OTHER ==
--- NOTE | 2018-01-28 13:59 | US ---
EXAMINATION TYPE: US venous doppler duplex LE RT DATE OF EXAM: 01/28/2018 1:42 PM COMPARISON: NONE CLINICAL HISTORY: 87-year-old female M79.89 SWELLING OF EXT RT. Right leg swelling, no redness, no pa in SIDE PERFORMED: Right TECHNIQUE: The lower extremity deep venous system is examined utilizing real time linear array sonog magdalene with graded compression, doppler sonography and color-flow sonography. FINDINGS: VESSELS IMAGED: External Iliac Vein (EIV) Common Femoral Vein Deep Femoral Vein Greater Saphenous Vein * Femoral Vein Popliteal Vein Small Saphenous Vein * Proximal Calf Veins (* superficial vessels) Right Leg: Negative for DVT IMPRESSION: No evidence for DVT within the right lower extremity imaged from the groin to the upper calf.
== END ==
LOC: RADUSWWP 13:08
PROVIDERS: ATTEND Internal Medicine
DX: M79.89 Other specified soft tissue disorders (principal)